=== PATIENT | female | born 1940 | race Caucasian/White ===

== ENCOUNTER 2019-04-14 09:24 | Emergency (ER) | payer MEDICARE, MEDICAID ==
[~2019-04-14] VITALS: Ht 162.6 cm; Wt 59.0 kg
[2019-04-14 09:28] VITALS: BP 124/73
[2019-04-14] MEDS ORDERED: CEPH-572 PO (09:45)
[2019-04-14] MEDS ORDERED: MUPI22OI30 TOP (09:45)
[2019-04-14] MEDS ORDERED: TETanus/Pertussis (Acell)/Diphther VAC/PF (Tdap-Adult) 0.5ml syringe IM ONE (09:50)
[2019-04-14] MEDS ORDERED: mupirocin 2% ointment 22GM TP ONE (09:50)
== END 2019-04-14 10:14 | disposition home or self-care (01) ==
LOC: ER 09:24
DX: S50.12XA Contusion of left forearm, initial encounter (principal); S50.812A Abrasion of left forearm, initial encounter; S40.812A Abrasion of left upper arm, initial encounter; L03.113 Cellulitis of right upper limb; I10 Essential (primary) hypertension; J44.9 Chronic obstructive pulmonary disease, unspecified; G89.29 Other chronic pain; F17.200 Nicotine dependence, unspecified, uncomplicated; Z90.710 Acquired absence of both cervix and uterus; Z98.890 Other specified postprocedural states; Z79.899 Other long term (current) drug therapy; W18.39XA Other fall on same level, initial encounter; Y93.89 Activity, other specified; Y92.89 Other specified places as the place of occurrence of the external cause; Y99.8 Other external cause status
CPT/HCPCS: 90471; 99284

== ENCOUNTER 2020-01-06 17:10 | Emergency (ER) | payer MEDICARE, MEDICAID ==
[~2020-01-06] VITALS: Ht 162.6 cm; Wt 77.3 kg
[2020-01-06 18:07] LABS: BASOPHILS # (AUTO) 0.1 X10'3 (0-0.2); BASOPHILS % (AUTO) 0.7 % (0-1); EOSINOPHILS # (AUTO) 0.5 X10'3 (0-0.9); EOSINOPHILS % (AUTO) 5.9 % (0-6); HEMATOCRIT 40.9 % (35.0-45.0); HEMOGLOBIN 13.9 g/dl (12.0-16.0); LYMPHOCYTES # (AUTO) 0.8 X10'3 (1.1-4.8); LYMPHOCYTES % (AUTO) 10.1 % (21-51); MEAN CORPUSCULAR HEMOGLOBIN 31.1 PG (27.0-31.0); MEAN CORPUSCULAR VOLUME 91.6 FL (78-98); MEAN PLATELET VOLUME 7.2 FL (7.4-10.4); MONOCYTES # (AUTO) 0.9 X10'3 (0-0.9); NEUTROPHILS # (AUTO) 6.1 X10'3 (1.8-7.7); NEUTROPHILS % (AUTO) 72.3 % (42-75); PLATELET COUNT 369 X10'3 (140-440); RED BLOOD COUNT 4.46 X10'6 (4.20-5.60); RED CELL DISTRIBUTION WIDTH 12.8 % (11.5-14.5); WHITE BLOOD COUNT 8.4 X10'3 (4.5-11.0)
[2020-01-06] MEDS ORDERED: PRED20TA PO (18:18)
[2020-01-06] MEDS ORDERED: AZIT-21 PO (18:18)
[2020-01-06] MEDS ORDERED: ALBU8.5H8 INH (18:18)
[2020-01-06 18:32] LABS: ALANINE AMINOTRANSFERASE 40 U/L (12-78); ALBUMIN 3.3 G/DL (3.4-5.0); ALBUMIN/GLOBULIN RATIO 0.9 (1.1-1.5); ALKALINE PHOSPHATASE 114 IU/L (46-116); ANION GAP 3 (8-16); ASPARTATE AMINO TRANSFERASE 36 U/L (10-37); BILIRUBIN,TOTAL 0.5 MG/DL (0.1-1.0); BLOOD UREA NITROGEN 9 MG/DL (7-18); BUN/CREATININE RATIO 14.1 (6.6-38.0); CALCIUM 9.1 MG/DL (8.5-10.1); CHLORIDE 92 MMOL/L (99-107); CREATININE 0.64 MG/DL (0.40-0.90); GLUCOSE 100 MG/DL (70-104); POTASSIUM 3.8 MMOL/L (3.5-5.1); SODIUM 128 MMOL/L (135-145); TOTAL CARBON DIOXIDE 32.9 MMOL/L (24-32); eGFR 90 ML/MIN
[2020-01-06 18:47] VITALS: BP 150/89
== END 2020-01-06 18:52 | disposition home or self-care (01) ==
LOC: ER 17:11
DX: J44.1 Chronic obstructive pulmonary disease with (acute) exacerbation (principal); Z20.828 Contact with and (suspected) exposure to other viral communicable diseases; I10 Essential (primary) hypertension; G89.29 Other chronic pain; Z90.710 Acquired absence of both cervix and uterus; Z98.890 Other specified postprocedural states; Z87.891 Personal history of nicotine dependence; Z79.899 Other long term (current) drug therapy
CPT/HCPCS: 36415; 71045; 80053; 83605; 84145; 85025; 87635; 99284

== ENCOUNTER 2020-07-13 12:48 | Emergency (ER) | payer MEDICARE, MEDICAID ==
[~2020-07-13] VITALS: Ht 154.9 cm; Wt 63.0 kg
[~2020-07-13 12:48] MED LIST: ALBU8.5H8 INH
[2020-07-13] MEDS ORDERED: morphine 4 MG/ML inj SYRINge IV ONE (13:15)
[2020-07-13] MEDS ORDERED: tranexamic acid 100mg/ml inj. IV ONE (13:40)
[2020-07-13] MEDS ORDERED: labetalol 20mg/4ml (5mg/ml) syringe IV ONE (13:50)
[2020-07-13] MEDS ORDERED: niCARDipine-NS 40mg/200ml IVPB 200 ML IV SCH (13:50)
[2020-07-13 14:11] VITALS: BP 187/98
--- NOTE | 2020-07-13 14:17 | NUR ---
called to give nurse:Sylvia waldron rn taking care who had already received report from EMS, nothing new to add.
== END 2020-07-13 14:12 | disposition short-term general hospital (02) ==
LOC: ER 12:49
DX: S06.5X0A Traumatic subdural hemorrhage without loss of consciousness, initial encounter (principal); S51.012A Laceration without foreign body of left elbow, initial encounter; S81.012A Laceration without foreign body, left knee, initial encounter; I10 Essential (primary) hypertension; J44.9 Chronic obstructive pulmonary disease, unspecified; G89.29 Other chronic pain; Z90.710 Acquired absence of both cervix and uterus; Z98.890 Other specified postprocedural states; W06.XXXA Fall from bed, initial encounter; Y93.89 Activity, other specified; Y92.89 Other specified places as the place of occurrence of the external cause; Y99.9 Unspecified external cause status
CPT/HCPCS: 70450; 70486; 72125; 96374; 96375; 99285; J2270; J3490